=== PATIENT | female | born 1965 | race Caucasian/White ===

== ENCOUNTER 2016-10-14 17:37 | Emergency (ER) | payer OTHER ==
--- NOTE | ~2016-10-14 | CT4 ---
[facility] A Service of [facility] RADIOLOGY TEXT RESULTS PATIENT: REX ELIZABETH LOCATION: SED : 67 UNIT #: [id number] AGE: [address]: TOMMY CORCORAN SEX: F ORDER DR: [id number] [place] [id number] E MR#: [id number] Acc #: [id number] NAME: REX ELIZABETH : 1965 SEX: F STUDY DATE/TIME: 10/14/2016 17:57 UNIT: SED ROOM: STUDY DESCRIPTION: CT Abd and Pelv Wo Cont Attending Physician: Tommy Corcoran Ordering Physician: Physician Non-Staff Primary Care Physician: Yolanda Alberts M.D. MEDICAL IMAGING REPORT This report is preliminary unless electronic signature is present. EXAM CT abdomen and pelvis without contrast. HISTORY Frequent urination with right lower quadrant pain for 2 days. Suspected UTI. TECHNIQUE This CT exam was performed with one or more of the following radiation dose reduction techniques: automatic exposure control, adjustment of mA and/or kV according to patient size, and iterative reconstruction. FINDINGS CT abdomen and pelvis was performed without contrast CT abdomen: Incidental subcentimeter cysts in the lateral segment left hepatic lobe. Remainder of the liver is unremarkable. Gallbladder, spleen, pancreas, kidneys, and adrenal glands are normal. No renal calculi. No hydronephrosis. No perinephric stranding. No bowel dilatation. Normal caliber abdominal aorta. CT pelvis: No pelvic mass or fluid collection. Hysterectomy. The appendix is not visualized and may be absent. Urinary bladder is normal. 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 IMPRESSION 1. No acute findings. 2. No urinary calculi or obstruction. 3. No free fluid or inflammatory stranding. 4. Hysterectomy. [facility] A Service [facility] RADIOLOGY TEXT RESULTS PATIENT: REX ELIZABETH LOCATION: SED : 67 UNIT #: [id number] AGE: [address]: TOMMY CORCORAN SEX: F ORDER DR: Dictated by... Jamar Mcbride M.D. THIS IS AN ELECTRONICALLY VERIFIED REPORT Jamar Mcbride M.D. at 10/15/2016 3:54 PM EDELMIRA/jacquie TD: 10/15/2016 08:11 JOB #: [id number] MEDICAL IMAGING REPORT
[~2016-10-14 17:37] MED LIST: ADVAIR 1001 DISK W/D PO; ALBUTEROL17 GM INH; AMOXICILLIN875 MG PO; AMOXIL500 M2 PO; ASPIRIN81 MG PO; ATENOLOL50 MG PO; BACTRIM DS TABL1 TA1 PO; BAYER ASPIRIN325 M1 PO; DOLOBID PO; FLAGYL PO; FLEXERIL PO; FLEXERIL10 M1 PO; HYDROCODON-ACE1 EAC9 PO; LEVOTHYROXINE100 MC1 PO; MEDROL DOSEPAK4 MG PO; METHIMAZOLE10 MG PO; NAPROSYN500 MG PO; NAPROXEN PO; NO MEDICATIONS; NORCO 5/325 TAB1 TAB PO; PHENERGAN25 M1 PO; PREDNISONE PO; SYMBICORT INH; SYNTHROID PO; SYNTHROID75 MCG PO; THYROID PILL; ULTRAM PO; VICODIN 5/500 T1 TAB PO; VOLTAREN75 MG PO; [UNRECOGNIZED DRUG - REMARK]
[2016-10-14 18:01] LABS: URINE APPEARANCE CLEAR; URINE BILIRUBIN NEG (NEG); URINE BLOOD NEG (NEG); URINE COLOR YELLOW; URINE GLUCOSE NEG (NORM); URINE KETONE NEG (NEG); URINE LEUKOCYTE ESTERASE NEG (NEG); URINE NITRATE NEG (NEG); URINE PROTEIN NEG (NEG); URINE SOURCE CLEAN CATCH; URINE SPECIFIC GRAVITY 1.015 (1.003-1.035); URINE UROBILINOGEN 0.2 MG/DL (NORM)
[2016-10-14 18:02] LABS: MICRO INDICATED? NO
== END 2016-10-14 19:24 | disposition home or self-care (01) ==
LOC: SED 17:37
PROVIDERS: Nurse Practitioner
DX: R30.0 Dysuria (principal); I25.2 Old myocardial infarction; I10 Essential (primary) hypertension; Z90.710 Acquired absence of both cervix and uterus; Z88.8 Allergy status to other drugs, medicaments and biological substances
CPT/HCPCS: 74176; 81003; 99284

== ENCOUNTER → 2016-10-30 | Outpatient (CLI) | payer OTHER ==
--- NOTE | ~2016-10-30 | TH ---
Unit #: [id number] #: [id number] Patient: REX ELIZABETH [id number] [facility] [[email or web address] [address] [address] [id number] O MR#: [id number] NAME: REX ELIZABETH. : 1965 SEX: F STUDY DATE/TIME: 10/30/2016 UNIT: [facility] ROOM: STUDY DESCRIPTION: Attending Physician: La Nena Ferreira M.D. Referring Physician: La Nena Ferreira M.D. Primary Care Physician: Yolanda Alberts M.D. CARDIOLOGY REPORT EXAM Lexiscan Cardiolite stress test, nuclear portion. PROCEDURE Using technetium 99m labeled Cardiolite, rest and stress SPECT images were obtained. Multiple SPECT images were obtained in various views including horizontal and vertical long axis and short axis views of the left ventricle. Images were obtained by gated SPECT method. The patient was administered 10.9 mCi of Cardiolite at rest. The patient was administered 35.4 mCi of Cardiolite after Lexiscan infusion was completed. On the stress images, there is normal perfusion noted. The rest images show normal perfusion. Comparing rest and stress images, there is no stress-induced ischemia noted. The left ventricular ejection fraction is calculated to be 73%. There is no focal wall motion abnormality seen. CONCLUSION 1. No stress-induced ischemia noted. 2. The left ventricular ejection fraction is calculated to be 73%. 3. There is no focal wall motion abnormality seen. 4. Normal Lexiscan Cardiolite stress test. 5. Dictated by... Maddi Vickers TD: 10/30/2016 15:21 JOB #: [id number] CARDIOLOGY REPORT Page 1 of 1 X La Nena Ferreira MD <ELECTRONICALLY SIGNED> 02/28/17 1429 CARDIOLOGY REPORT
--- NOTE | ~2016-10-30 | ST ---
Unit #: [id number] #: [id number] Patient: BIBIANA ELIZABETH [id number] [facility]. [address] [place], [place] [address] [id number] O MR#: [id number] NAME: BIBIANA ELIZABETH. : 1965 SEX: F STUDY DATE/TIME: 10/30/2016 UNIT[facility] ROOM: STUDY DESCRIPTION: Attending Physician: La Nena Ferreira M.D. Referring Physician: La Nena Ferreira M.D. Primary Care Physician: Yolanda Alberts M.D. CARDIOLOGY REPORT REASON FOR TEST Chest pain. FINDINGS Baseline EKG: Sinus tachycardia 104 beats per minute. PROCEDURE The patient exercised on the treadmill according to Jaime protocol for a total of 8 minutes 51 seconds, achieving 4.8 METs with a resting heart rate of 104 beats per minute and a peak heart rate of 133 beats per minute which represented 77% of the maximum predicted heart rate. The patient was unable to continue into stage 3 secondary to severe shortness of breath and fatigue. She denied any complaints of chest pain while on the treadmill. There were no ST or T wave changes suggestive of ischemia during the portion of the testing that she was able to complete. Therefore, the test was changed over to Lexiscan. The patient was allowed to sit in the recovery period for about three minutes until her breathing issues resolved prior to proceeding with Lexiscan Cardiolite. Lexiscan Cardiolite: Baseline EKG shows normal sinus rhythm, 98 beats per minute. Next, 0.4 mg of Lexiscan was injected per protocol followed by Cardiolite. During the infusion, the patient did complain of nausea, stomach cramping, shortness of breath, and mild chest discomfort. There were no changes to the ST segments suggestive of ischemia. There was no ectopia. The test was stopped secondary to protocol completion. IMPRESSION 1. Negative EKG portion of Lexiscan Cardiolite. 2. No ST changes suggestive of ischemia. 3. During the infusion, the patient did complain of shortness of breath, mild chest tightness, as well as, nausea with one episode of bilious emesis as well as stomach cramping. These symptoms completely resolved within three minutes into the recovery period except for her stomach cramping. She was given caffeine for reversal and no other intervention was needed. 4. There were no arrhythmias. 5. Please correlate with nuclear imaging. Dictated by... Bibiana oFrd A.P.R.N. for La Nena Ferreira M.D. Unit #: [id number] #: [id number] Patient: CLARABIBIANA CLIFFORD/delfina TD: 10/30/2016 11:40 JOB #: [id number] CARDIOLOGY REPORT Page 1 of 1 X Bibiana Ford APRN CARDIOLOGY REPORT
== END | disposition home or self-care (01) ==
LOC: CNUC 08:25
DX: R07.9 Chest pain, unspecified (principal); J44.9 Chronic obstructive pulmonary disease, unspecified; G47.30 Sleep apnea, unspecified; I10 Essential (primary) hypertension
CPT/HCPCS: 78452; 93017; A9500; J2785